=== PATIENT | male | born 1955 | race Caucasian/White ===

== ENCOUNTER 2018-05-30 11:36 | Day surgery (SDC) | payer MEDICARE ==
[~2018-05-30] VITALS: Ht 180.3 cm; Wt 79.5 kg
[2018-05-30 11:45] VITALS: BP 121/76
[2018-05-30] MEDS ORDERED: VENL-191 PO (11:50)
[2018-05-30] MEDS ORDERED: PILO5TAB10 PO (11:50)
[2018-05-30] MEDS ORDERED: LEVO150T8 PO (11:51)
[2018-05-30] MEDS ORDERED: MULT1TAB74 PO (11:52)
[2018-05-30] MEDS ORDERED: T3 PO (11:52)
[2018-05-30] MEDS ORDERED: LIOT5TAB14 PO (11:54)
[2018-05-30] MEDS ORDERED: MIDAZolam 5mg/5ml vial ONE (12:07)
[2018-05-30] MEDS ORDERED: fentaNYL/PF 50MCG/1 ML 2ML syringe ONE (12:07)
[2018-05-30] MEDS ORDERED: LIDOcaine Viscous 15ml cup ONE (12:07)
[2018-05-30 13:08] VITALS: BP 117/72
[2018-05-30 13:18] VITALS: BP 109/72
[2018-05-30 13:28] VITALS: BP 111/73
[2018-05-30 13:38] VITALS: BP 119/74
== END 2018-05-30 13:49 | disposition home or self-care (01) ==
LOC: GI LAB 11:36
PROVIDERS: ATTEND Internal Medicine Gastroenterology
DX: K22.2 Esophageal obstruction (principal); Q27.33 Arteriovenous malformation of digestive system vessel; E03.9 Hypothyroidism, unspecified; Z72.89 Other problems related to lifestyle; Z85.841 Personal history of malignant neoplasm of brain; Z92.21 Personal history of antineoplastic chemotherapy; Z92.3 Personal history of irradiation; Z85.818 Personal history of malignant neoplasm of other sites of lip, oral cavity, and pharynx; Z79.899 Other long term (current) drug therapy; Z98.890 Other specified postprocedural states
CPT/HCPCS: 43249; G0500; J2250; J3010; J7030; 99152; 99153; A4620; C1726

== ENCOUNTER 2022-12-08 15:42 | Outpatient (CLI) | payer MEDICARE ==
[~2022-12-08 15:42] MED LIST: LEVO150T8 PO; LIOT5TAB14 PO; MULT-620 PO; PILO5TAB10 PO; VENL-191 PO
== END 2022-12-08 23:59 | disposition home or self-care (01) ==
LOC: RAD 15:42
PROVIDERS: ATTEND Otolaryngology
DX: R13.12 Dysphagia, oropharyngeal phase (principal); Z85.841 Personal history of malignant neoplasm of brain
CPT/HCPCS: 74230